=== PATIENT | male | born 1980 ===

== ENCOUNTER 2017-07-07 17:35 | Emergency (ER) | payer BC ==
--- NOTE | 2017-07-07 21:34 | UC ---
Waltre Falk Gabriel, scribed for Thang Tavera MD on 07/07/17 at 2000 . Throat Pain/Nasal Bart HPI - HPI Summary HPI Summary: This patient is a 36 year old M presenting to [facility] with a chief complaint of general illness since 4 days ago. The patient rates the pain 8/10 in severity. Symptoms aggravated at night time. Patient reports sore throat, congestion, rhinorrhea, and cough. Patient denies post nasal drip, sinus pain, and ear pain. Patient believes this originated with a GI illness that began a week ago and moved into his sinuses. The GI symptoms included fever, nausea, and diarrhea. - History of Current Complaint Chief Complaint: UCRespiratory Stated Complaint: RESP Time Seen by Provider: 07/07/17 19:37 Hx Obtained From: Patient Onset/Duration: Lasting Days - 4, Still Present Severity: Moderate Pain Intensity: 8 Pain Scale Used: 0-10 Numeric Cough: Nonproductive Associated Signs & Symptoms: Positive: Negative - post nasal drip, sinus pain, and ear pain, Other - sore throat, congestion, rhinorrhea, and cough - Allergies/Home Medications Allergies/Adverse Reactions: Allergies Allergy/AdvReac Type Severity Reaction Status Date / Time No Known Allergies Allergy Verified 07/07/17 18:01 Home Medications: Home Medications Dextromethorphan-Phenylephrine [Vicks Dayquil Cold & Flu] 1 cap PO 07/07/17 [ History] Diphenhydramine HCl [Benadryl Allergy 25 MG CAP] 25 mg PO 07/07/17 [History] Ibuprofen [Advil] 400 mg PO 07/07/17 [History] PMH/Surg Hx/FS Hx/Imm Hx Previously Healthy: Yes - Surgical History Surgical History: Yes Surgery Procedure, Year, and Place: appy - Family History Known Family History: Positive: Diabetes, Other - RAD - Social History Alcohol Use: Daily Substance Use Type: None Smoking Status (MU): Never Smoked Tobacco Review of Systems ENT: Sore Throat, Nasal Discharge, Sinus Congestion Respiratory: Cough All Other Systems Reviewed And Are Negative: Yes Physical Exam Triage Information Reviewed: Yes Appearance: Well-Appearing, No Pain Distress Vital Signs: Initial Vital Signs Temp 98.7 F 07/07/17 17:57 Pulse 66 07/07/17 17:57 Resp 18 07/07/17 17:57 BP 116/66 07/07/17 17:57 Pulse Ox 100 07/07/17 17:57 Vital Signs Reviewed: Yes Eyes: Positive: Conjunctiva Clear ENT: Positive: Pharyngeal erythema, Nasal congestion, TMs normal Neck: Positive: Nontender Respiratory: Positive: Chest non-tender, Lungs clear, Normal breath sounds, No respiratory distress Cardiovascular: Positive: RRR, No Murmur Abdomen Description: Positive: Nontender Musculoskeletal: Positive: ROM Intact, No Edema Neurological: Positive: Alert, Muscle Tone Normal Psychological: Positive: Normal Response To Family, Age Appropriate Behavior Skin Exam: Normal Throat Pain/Nasal Course/Dx - Course Course Of Treatment: 36 yr old with runny nose, cough, sore throat, and neg rapid strep. DC home. Viral syndrome. - Differential Dx/Diagnosis Provider Diagnoses: upper respiratory infection Discharge - Discharge Plan Condition: Good Disposition: HOME Patient Education Materials: Upper Respiratory Infection (ED) Referrals: No Primary Care Phys,NOPCP [Primary Care Provider] - [facility] [place] PHYSICIAN REFERRAL [Outside] The documentation as recorded by the Walter mcnair Gabriel accurately reflects the service I personally performed and the decisions made by Ayse shabazz Walter, MD.
== END 2017-07-07 20:05 | disposition home or self-care (01) ==
LOC: UCEAST 17:35
DX: J06.9 Acute upper respiratory infection, unspecified (principal)
CPT/HCPCS: 87651; 99201; G0463